=== PATIENT | female | born 1995 | race American Indian/Alaskan Native ===

== ENCOUNTER 2019-11-06 00:11 | Emergency (ER) | payer SELFPAY ==
[2019-11-06 01:51] VITALS: BP 109/67
[2019-11-06] MEDS ORDERED: dexAMETHasone 20 MG/5 ML VIAL IM ONE (03:45)
[2019-11-06] MEDS ORDERED: diphenhydrAMINE 25 MG CAP PO ONE (03:46)
[2019-11-06] MEDS ORDERED: FAMOTIDINE 20 MG TAB PO ONE (03:47)
--- NOTE | 2019-11-06 03:57 | Emergency Department Report ---
ED Allergic Reaction HPI - General Chief complaint: Allergic Reaction Stated complaint: ALLERGIC REACTION Source: patient, family Mode of arrival: Ambulatory Limitations: No Limitations - History of Present Illness Initial Comments: Patient is a 24-year-old -Citizen Of The [place] female with no past medical history who presents to the ED with complaint of acute onset persistent diffuse itchy urticarial erythematous maculopapular rashes for the last 3 days. Patient states that she has not had any new detergents in the house, new foods staff, new fabric and she is unaware of any exposure to any allergen including what she is generally known to be allergic to which is latex. Patient states that she has been taking [id number] Benadryl which helps relieve the itching but as soon as the pain medicine wears out the itching on the rashes return. Patient denies swollen lips, swollen tongue, dysphagia, dysphonia, cough, chest pain, shortness of breath, wheezing, nausea, vomiting, diarrhea, abdominal pain, fever, chills, dizziness or lightheadedness, facial swelling, nasal and sinus congestion. MD Complaint: allergic reaction, hives, other (diffuse itchy urticarial rashes) -: Sudden, days(s) (3) Exposure: unknown Symptoms: rash, itching. denies: facial swelling, lip swelling, difficulty swallowing, difficulty breathing, orolingual swelling, hoarseness, syncopy, dizziness, nausea, vomiting, other, abdominal pain Severity: moderate Treatment Prior to Arrival: benadryl (24 hours) Previous Allergy History: none - Related Data Previous Rx's Medication Instructions Recorded Last Taken Type Famotidine [Pepcid] 20 mg PO BID #30 tablet 11/06/19 Unknown Rx Prednisone [predniSONE 10 mg 10 mg PO .TAPER #21 tab.ds.pk 11/06/19 Unknown Rx (6-Day Pack, 21 Tabs)] diphenhydrAMINE [Benadryl CAP] 25 mg PO Q6HR PRN #30 capsule 11/06/19 Unknown Rx Allergies Allergy/AdvReac Type Severity Reaction Status Date / Time latex Allergy Hives Verified 11/06/19 02:01 ED Review of Systems ROS: Stated complaint: ALLERGIC REACTION Other details as noted in HPI Constitutional: denies: chills, fever Eyes: denies: eye pain, eye discharge, vision change ENT: denies: ear pain, throat pain Respiratory: denies: cough, shortness of breath, wheezing Cardiovascular: denies: chest pain, palpitations Endocrine: no symptoms reported Gastrointestinal: denies: abdominal pain, nausea, diarrhea Genitourinary: denies: urgency, dysuria, discharge Musculoskeletal: denies: back pain, joint swelling, arthralgia Skin: rash, change in color, pruritus, other (Mildly erythematous maculopapular urticarial itchy rashes diffusely). denies: lesions Neurological: denies: headache, weakness, paresthesias Psychiatric: denies: anxiety, depression Hematological/Lymphatic: denies: easy bleeding, easy bruising ED Past Medical Hx - Past Medical History Previous Medical History?: No - Surgical History Past Surgical History?: No - Social History Smoking Status: Current Every Day Smoker Substance Use Type: None - Medications Home Medications: Home Medications Medication Instructions Recorded Confirmed Last Taken Type Famotidine [Pepcid] 20 mg PO BID #30 tablet 11/06/19 Unknown Rx Prednisone [predniSONE 10 mg 10 mg PO .TAPER #21 tab.ds.pk 11/06/19 Unknown Rx (6-Day Pack, 21 Tabs)] diphenhydrAMINE [Benadryl CAP] 25 mg PO Q6HR PRN #30 capsule 11/06/19 Unknown Rx ED Physical Exam - General Limitations: No Limitations General appearance: alert, in no apparent distress - Head Head exam: Present: atraumatic, normocephalic, normal inspection - Eye Eye exam: Present: normal appearance, PERRL, EOMI. Absent: scleral icterus, conjunctival injection Pupils: Present: normal accommodation - ENT ENT exam: Present: normal exam, normal orophraynx, mucous membranes moist, TM's normal bilaterally, normal external ear exam - Neck Neck exam: Present: normal inspection, full ROM - Respiratory Respiratory exam: Present: normal lung sounds bilaterally. Absent: respiratory distress, wheezes, rales, stridor, chest wall tenderness, accessory muscle use, decreased breath sounds, prolonged expiratory - Cardiovascular Cardiovascular Exam: Present: regular rate, normal rhythm, normal heart sounds. Absent: systolic murmur, diastolic murmur, rubs, gallop - GI/Abdominal GI/Abdominal exam: Present: soft, normal bowel sounds. Absent: distended, tende rness, guarding, rebound, hyperactive bowel sounds, hypoactive bowel sounds - Extremities Exam Extremities exam: Present: normal inspection, full ROM, normal capillary refill - Back Exam Back exam: Present: normal inspection, full ROM. Absent: tenderness, CVA tenderness (R), muscle spasm - Neurological Exam Neurological exam: Present: alert, oriented X3, CN II-XII intact, normal gait, reflexes normal - Psychiatric Psychiatric exam: Present: normal affect, normal mood - Skin Skin exam: Present: warm, dry, intact, normal color, rash (Mild erythematous diffuse urticarial maculopapular rashes ), erythema, urticaria ED Course Vital Signs 11/06/19 01:06 Temperature 98.4 F Pulse Rate 76 Respiratory 16 Rate Blood Pressure 109/67 O2 Sat by Pulse 100 Oximetry ED Medical Decision Making - Medical Decision Making This is a 24-year-old -Citizen Of [place] female with no past medical history who presents to the ED with complaint of acute onset persistent diffuse itchy urticarial erythematous maculopapular rashes for the last 3 days. Patient states that she has not had any new detergents in the house, new foods staff, new fabric and she is unaware of any exposure to any allergen including what she is generally known to be allergic to which is latex. Patient states that she has been taking [id number] Benadryl which helps relieve the itching but as soon as the pain medicine wears out the itching on the rashes return. In the ED, patient is alert and oriented x3 and is not in any distress. Patient was treated for acute allergic reaction with steroids, Benadryl and Pepcid. Patient had stated that the last time she took Benadryl was 24 hours ago. On reeva luation, patient's itching resolved with medications. Patient was discharged home on medication and advised to follow-up with her primary care physician in 5 to 7 days for reevaluation. Patient was also advised to consider going for allergy testing to determine the source of her acute allergic reaction. Patient was otherwise advised to return to the ED immediately if symptoms get worse. - Differential Diagnosis Urticaria; Allergic reaction; Dermatitis; Critical care attestation.: If time is entered above; I have spent that time in minutes in the direct care of this critically ill patient, excluding procedure time. ED Disposition Clinical Impression: Acute urticaria, Itching with irritation Acute allergic reaction Qualifiers: Encounter type: initial encounter Qualified Code(s): T78.40XA - Allergy, unspecified, initial encounter Disposition: TO HOME OR SELFCARE Is pt being admited?: No Does the pt Need Aspirin: No Condition: Stable Instructions: Urticaria (ED), Itchy Skin (ED), Allergies (ED) Additional Instructions: Take medication with food, drink plenty of fluids and follow-up with your primary care physician in 7 to 10 days for reevaluation. Return to the ED immediately if symptoms get worse. Prescriptions: diphenhydrAMINE [Benadryl CAP] 25 mg PO Q6HR PRN #30 capsule PRN Reason: Itching Famotidine [Pepcid] 20 mg PO BID #30 tablet Prednisone [predniSONE 10 mg (6-Day Pack, 21 Tabs)] 10 mg PO .TAPER #21 tab.ds.pk Referrals: [facility] [Provider Group] - 3-5 Days Time of Disposition: 03:56 Print Language: MALTESE
== END 2019-11-06 04:50 | disposition home or self-care (01) ==
LOC: ED 00:11
DX: L50.8 Other urticaria (principal); L29.9 Pruritus, unspecified; F17.200 Nicotine dependence, unspecified, uncomplicated; Z79.899 Other long term (current) drug therapy; Z91.040 Latex allergy status
CPT/HCPCS: 96372; 99282; J1100